=== PATIENT | female | born 1995 | race African-American/Black ===

== ENCOUNTER 2021-07-11 01:52 | Emergency (ER) | payer OTHER ==
[~2021-07-11] VITALS: Ht 152.4 cm; Wt 66.0 kg
[2021-07-11] MEDS ORDERED: ACET-2708 MT (03:01)
[2021-07-11 03:54] VITALS: BP 121/64
== END 2021-07-11 03:55 | disposition home or self-care (01) ==
LOC: ER 01:52
DX: M79.672 Pain in left foot (principal)
CPT/HCPCS: 73630; 99283